=== PATIENT | male | born 1985 | race Caucasian/White ===

== ENCOUNTER 2019-09-03 22:22 | Emergency (ER) | payer SELFPAY ==
[2019-09-03] MEDS ORDERED: Bupivacaine 0.5% 10 ML SDV INJECT ONE (22:44)
[2019-09-03] MEDS ORDERED: Lidocaine 1% with EPINEPHrine 1:100,000 20 ML MDV INJECT ONE (22:44)
[2019-09-03] MEDS ORDERED: Lidocaine/EPINEPHrine/Tetracaine Soln 1 ML TOP ONE (22:45)
--- NOTE | 2019-09-03 22:47 | EDM.PDOC ---
ED HPI GENERAL MEDICAL PROBLEM - General Chief Complaint: Laceration Stated Complaint: LACERATION TO FACE Time Seen by Provider: 09/03/19 22:34 Source of Information: Reports: Patient, Family () History Limitations: Reports: No Limitations - History of Present Illness INITIAL COMMENTS - FREE TEXT/NARRATIVE: Mr. Soler is a very pleasant 34-year-old man with no chronic medical problems, who states that his right cheek was struck with a wrench while he was working in his home shop around 21:20 this evening, lacerating it. He is otherwise uninjured. His last tetanus vaccination was about 10 years ago. The patient does not have a PCP. He received an influenza vaccine this season. - Related Data Allergies Allergy/AdvReac Type Severity Reaction Status Date / Time No Known Allergies Allergy Verified 09/03/19 22:32 Home Meds: Home Meds . [No Known Home Meds] 09/03/19 [History] Past Medical History - Past Health History Medical/Surgical History: Denies Medical/Surgical History Social & Family History - Tobacco Use Smoking Status *Q: Never Smoker Tobacco Use Within Last Twelve Months: Smokeless Tobacco (chews on occasion) - Caffeine Use Caffeine Use: Reports: None - Alcohol Use Alcohol Use History: Yes Alcohol Use Frequency: Socially - Recreational Drug Use Recreational Drug Use: No - Living Situation & Occupation Living situation: Reports: , with Spouse, with Family (4 kids) Occupation: Employed ([employer]) ED ROS GENERAL - Review of Systems Review Of Systems: Comprehensive ROS is negative, except as noted in HPI. ED EXAM, SKIN/RASH Exam: See Below Exam Limited By: No Limitations General Appearance: Alert, WD/WN, No Apparent Distress Eye Exam: Bilateral Eye: EOMI, Normal Inspection Ears: Normal External Exam, Hearing Grossly Normal Nose: Normal Inspection Throat/Mouth: Normal Inspection, Normal Lips, Normal Voice, No Airway Compromise Head: Normocephalic, Other (Approximately 3.0 cm linear laceration to the patint 's right cheek. There is local soft tissue tenderness, but no underlying bony tenderness.) ED SKIN PROCEDURES - Laceration/Wound Repair Right Face Appearance: Subcutaneous, Linear, Clean Distal NVT: Neuro & Vascular Intact, No Tendon Injury Anesthetic Type: Topical (LET) Skin Prep: Providone-Iodine (Betadine) Exploration/Debridement/Repair: Wound Explored, In a Bloodless Field, Explored to Base, No Foreign Material Found Closed with: Sutures Lac/Wound length In cm: 3.0 Suture Size: 3-0 # of Sutures: 8 Suture Type: Nylon (Ethilon), Running Sterile Dressing Applied: Nurse Tetanus Status Addressed: Yes Complications: No Course - Vital Signs Last Recorded V/S: Last Vital Signs Temp 36.4 C 09/03/19 22:29 Pulse 70 09/03/19 22:29 Resp 16 09/03/19 22:29 BP 127/82 09/03/19 22:29 Pulse Ox 98 09/03/19 22:29 - Orders/Labs/Meds Orders: Active Orders 24 hr Category Date Time Status Vaccines to be Administered [RC] PER UNIT ROUTINE Care 09/03/19 22:55 Active Meds: Medications Discontinued Medications Generic Name Dose Route Start Last Admin Trade Name Joseph PRN Reason Stop Dose Admin Bupivacaine HCl 10 ml 09/03/19 22:44 09/03/19 22:51 Sensorcaine-Mpf 0.5% INJECT 09/03/19 22:45 10 ml ONETIME ONE Administration Diphtheria/Tetanus/Acell Pertussis 0.5 ml 09/03/19 22:55 09/03/19 23:02 Adacel IM 09/03/19 22:56 0.5 ml .ONCE ONE Administration Lidocaine/Epinephrine 20 ml 09/03/19 22:44 09/03/19 22:51 Xylocaine 1% With Epinephrine 1:100,000 INJECT 09/03/19 22:45 20 ml ONETIME ONE Administration Lidocaine/Tetracaine 1 ml 09/03/19 22:45 09/03/19 22:51 Let Soln TOP 09/03/19 22:46 1 ml ONETIME ONE Administration - Re-Assessments/Exams Free Text/Narrative Re-Assessment/Exam: 09/03/19 22:45 The patient's facial laceration will require sutures. I have ordered topical LET. My suspicion for a facial bone fracture, such as his zygomatic arch, is low. I am not recommending a maxillofacial CT scan. 09/03/19 23:33 The patient had good local anesthesia following topical LET. The patient's right facial laceration was closed with 8 running sutures using 3-0 Ethilon. He tolerated the procedure well. The sutures should be ready for removal a 09/11/2019. 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 The patient received a tetanus vaccination during his ED visit. Departure - Departure Time of Disposition: 23:35 Disposition: Home, Self-Care 01 Condition: Good Clinical Impression: Laceration of face - Discharge Information *PRESCRIPTION DRUG MONITORING PROGRAM REVIEWED*: Not Applicable *COPY OF PRESCRIPTION DRUG MONITORING REPORT IN PATIENT REBECCA: Not Applicable Instructions: Facial Laceration, [id number] Referrals: PCP,None [Primary Care Provider] - Forms: ED Department Discharge Additional Instructions: You were seen in the emergency room after lacerating the right side of your face with a wrench. Your wound was closed with 8 running sutures. Keep the wound clean with ordinary soap and water when you bathe. Pat dry. Antibiotic ointment is not necessary. You may cover the wound with a bandage if you are concerned that the wound might get dirty. Take [id number] ibuprofen, 3 tablets (800 mg) every 8 hours, with food, as needed for discomfort. The sutures should be ready for removal by 09/11/2019. Your may remove them if she feels comfortable in doing so, otherwise, the sutures can be removed at a walk-in clinic, by a nurse in your doctor's office, or in the ER. If any other problems, please do not hesitate to return to the ER. - My Orders Last 24 Hours: My Active Orders 09/03/19 22:55 Vaccines to be Administered [RC] PER UNIT ROUTINE - Assessment/Plan Last 24 Hours: My Active Orders 09/03/19 22:55 Vaccines to be Administered [RC] PER UNIT ROUTINE
[2019-09-03] MEDS ORDERED: Diphtheria,Pertussis(Acell),Tetanus Vaccine 0.5 ML Syringe IM ONE (22:55)
== END 2019-09-03 23:49 | disposition home or self-care (01) ==
LOC: JD.ED 22:22
DX: S01.411A Laceration without foreign body of right cheek and temporomandibular area, initial encounter (principal); F17.220 Nicotine dependence, chewing tobacco, uncomplicated; Z23 Encounter for immunization; W27.8XXA Contact with other nonpowered hand tool, initial encounter; Y93.89 Activity, other specified; Y92.009 Unspecified place in unspecified non-institutional (private) residence as the place of occurrence of the external cause; Y99.0 Civilian activity done for income or pay
CPT/HCPCS: 12013; 90471; 90715; 99282; 99282-25; J3490

== ENCOUNTER 2023-03-30 19:57 | Emergency (ER) | payer OTHER | END 2023-03-30 20:55 | disposition home or self-care (01) | LOC: JD.ED 19:57 | DX: M25.512 Pain in left shoulder (principal) | CPT/HCPCS: 73030-26-LT; 73030-LT; 99283 ==

== ENCOUNTER 2025-04-06 16:52 | Inpatient (IN) | payer OTHER ==
[2025-04-06 17:29] LABS: BASOPHILS ABSOLUTE AUTO 0.0 K/mm3 (0.0-0.2); BASOPHILS PERCENT AUTO 0.5 % (0.0-1.0); EOSINOPHILS ABSOLUTE AUTO 0.1 K/mm3 (0.0-0.4); EOSINOPHILS PERCENT AUTO 1.0 % (0.0-6.0); IMMATURE GRAN ABSOLUTE AUTO 0.03 K/mm3 (0.00-0.05); IMMATURE GRAN PERCENT AUTO 0.5 % (0.0-0.4); LYMPHOCYTES ABSOLUTE AUTO 2.2 K/mm3 (1.0-4.8); LYMPHOCYTES PERCENT AUTO 37.9 % (24.0-44.0); MEAN PLATELET VOLUME 9.9 fl (9.4-12.4); MONOCYTES ABSOLUTE AUTO 0.6 K/mm3 (0.0-0.8); MONOCYTES PERCENT AUTO 9.8 % (0.0-8.0); NEUTROPHILS ABSOLUTE AUTO 2.9 K/mm3 (1.8-7.7); NEUTROPHILS PERCENT AUTO 50.3 % (41.0-71.0); NRBC ABSOLUTE 0.00 (0.00-0.02); NRBC PERCENT 0.0 % (0.0-0.2); PLATELET COUNT,PLT 223 K/mm3 (150-400); RED BLOOD CELL COUNT 5.51 M/mm3 (4.52-5.90); WHITE BLOOD CELL COUNT,WBC 5.72 K/mm3 (3.9-11.3)
[2025-04-06 17:35] LABS: APPEARANCE,URINE CLEAR (Clear); GLUCOSE,URINE NEGATIVE (Negative); OCCULT BLOOD,URINE NEGATIVE (Negative)
[2025-04-06 17:44] LABS: BUPRENORPHINE SCREEN,URINE NEGATIVE (CUTOFF=10); METHADONE SCREEN, URINE NEGATIVE (CUT0FF=200); METHAMPHETAMINES SCREEN, URINE NEGATIVE (CUTOFF=500); OXYCODONE SCREEN,URINE NEGATIVE (CUT0FF=100); THC SCREEN,URINE 20 NG/ML NEGATIVE (CUTOFF=50)
[2025-04-06 17:48] LABS: AMPHETAMINES SCREEN, URINE NEGATIVE (CUTOFF=500)
[2025-04-06 17:52] LABS: A/G RATIO 1.2 (1-2); ALANINE AMINOTRANSFERASE,ALT 82 U/L (16-63); ASPARTATE AMNIOTRANSFERASE,AST 48 U/L (15-37); BILIRUBIN TOTAL 1.2 mg/dL (0.2-1.0); BLOOD UREA NITROGEN,BUN 13 mg/dL (7-18); CARBON DIOXIDE,CO2 20 mEq/L (21-32); CHLORIDE,CL 105 mEq/L (98-107); CREATININE 1.1 mg/dL (0.7-1.3); ESTIMATED GFR 88 mL/min (>60); GLUCOSE RANDOM 115 mg/dL (70-99); POTASSIUM,K 2.8 mEq/L (3.5-5.1); PROTEIN TOTAL,TP 8.0 g/dl (6.4-8.2); SODIUM,NA 141 mEq/L (136-145); TROPONIN I HIGH SENSITIVITY 7 pg/mL (<=76)
[2025-04-06 18:09] LABS: PHOSPHORUS 0.9 mg/dL (2.6-4.7)
[2025-04-06 18:10] LABS: ETHANOL BLOOD MEDICAL 0.00 gm% (0.00)
[2025-04-06] MEDS: Sodium Chloride 0.9% 10 ML Syringe FLUSH PRN (18:24)
[2025-04-06] MEDS ORDERED: Potassium Phosphates 40 MMOLE in Sodium Chloride 0.9% 500 ML IV SCH (18:45)
[2025-04-06 19:00] LABS: PHOSPHORUS 0.8 mg/dL (2.6-4.7)
[2025-04-06] MEDS: Iopamidol 612 MG/ML 100 ML Bottle IVPUSH ONE (19:03)
[2025-04-06] MEDS ORDERED: Ondansetron 4 MG Tab.DIS PO PRN (19:39)
[2025-04-06] MEDS: Potassium Bicarbonate/Cit Ac 20 MEQ Effervescent Tab PO ONE (20:22)
[2025-04-06] MEDS: Phosphorus #1 250 MG Tab PO ONE (20:22)
[2025-04-07] MEDS: SODIUM CHLORIDE IV SCH (01:00)
[2025-04-07] MEDS: POTASSIUM PHOSPHATES IV SCH (01:00)
[2025-04-07 07:56] LABS: BASOPHILS ABSOLUTE AUTO 0.0 K/mm3 (0.0-0.2); BASOPHILS PERCENT AUTO 0.5 % (0.0-1.0); EOSINOPHILS ABSOLUTE AUTO 0.1 K/mm3 (0.0-0.4); EOSINOPHILS PERCENT AUTO 2.5 % (0.0-6.0); IMMATURE GRAN ABSOLUTE AUTO 0.02 K/mm3 (0.00-0.05); IMMATURE GRAN PERCENT AUTO 0.4 % (0.0-0.4); LYMPHOCYTES ABSOLUTE AUTO 1.9 K/mm3 (1.0-4.8); LYMPHOCYTES PERCENT AUTO 33.5 % (24.0-44.0); MEAN PLATELET VOLUME 9.9 fl (9.4-12.4); MONOCYTES ABSOLUTE AUTO 0.5 K/mm3 (0.0-0.8); MONOCYTES PERCENT AUTO 9.4 % (0.0-8.0); NEUTROPHILS ABSOLUTE AUTO 3.0 K/mm3 (1.8-7.7); NEUTROPHILS PERCENT AUTO 53.7 % (41.0-71.0); NRBC ABSOLUTE 0.00 (0.00-0.02); NRBC PERCENT 0.0 % (0.0-0.2); PLATELET COUNT,PLT 180 K/mm3 (150-400); RED BLOOD CELL COUNT 5.02 M/mm3 (4.52-5.90); WHITE BLOOD CELL COUNT,WBC 5.62 K/mm3 (3.9-11.3)
[2025-04-07 08:19] LABS: A/G RATIO 1.1 (1-2); ALANINE AMINOTRANSFERASE,ALT 71.0 U/L (16-63); ASPARTATE AMNIOTRANSFERASE,AST 40.0 U/L (15-37); BILIRUBIN TOTAL 1.8 mg/dL (0.2-1.0); BLOOD UREA NITROGEN,BUN 13.0 mg/dL (7-18); CARBON DIOXIDE,CO2 21.0 mEq/L (21-32); CHLORIDE,CL 109.0 mEq/L (98-107); CREATININE 0.9 mg/dL (0.7-1.3); EST CRCL DRUG DOSING (CG) 133.01 mL/min; ESTIMATED GFR 112.0 mL/min (>60); GLUCOSE RANDOM 108.0 mg/dL (70-99); PHOSPHORUS 2.9 mg/dL (2.6-4.7); POTASSIUM,K 3.8 mEq/L (3.5-5.1); PROTEIN TOTAL,TP 6.9 g/dl (6.4-8.2); SODIUM,NA 143.0 mEq/L (136-145)
[2025-04-08 08:42] LABS: INTACT PTH 21.0 pg/mL (15-65)
== END 2025-04-07 10:24 | disposition home or self-care (01) | DRG 642 ==
LOC: JD.ED 16:52 → EEVIPCON 16:52 → JD.MS 23:05
PROVIDERS: ADMIT Family Medicine; ATTEND Family Medicine
DX: E83.39 Other disorders of phosphorus metabolism (principal); E87.20 Acidosis, unspecified; E87.6 Hypokalemia; E83.42 Hypomagnesemia; E80.6 Other disorders of bilirubin metabolism; H54.7 Unspecified visual loss; R07.9 Chest pain, unspecified; T67.5XXA Heat exhaustion, unspecified, initial encounter; X58.XXXA Exposure to other specified factors, initial encounter; Z86.16 Personal history of COVID-19; Z98.890 Other specified postprocedural states
CPT/HCPCS: 36415; 71045; 71045-26; 74177; 74177-26; 80053; 80306; 80307; 81003; 82306; 82310; 82947; 83605; 83690; 83735; 83880; 83970; 84100; 84484; 85025; 85379; 93005; 93010; 99222; 99284; A9270-GY; J3490; J7030; J7040; Q9967